=== PATIENT | female | born 1985 | race Caucasian/White ===

== ENCOUNTER 2018-05-22 18:26 | Emergency (ER) | payer OTHER ==
[~2018-05-22] VITALS: Ht 167.6 cm; Wt 90.7 kg
[2018-05-22 18:26] VITALS: BP 153/89
== END 2018-05-22 19:01 | disposition home or self-care (01) ==
LOC: ER 18:32
DX: S40.012A Contusion of left shoulder, initial encounter (principal); S90.31XA Contusion of right foot, initial encounter; S19.89XA Other specified injuries of other specified part of neck, initial encounter; Z90.89 Acquired absence of other organs; V49.49XA Driver injured in collision with other motor vehicles in traffic accident, initial encounter; Y93.89 Activity, other specified; Y92.413 State road as the place of occurrence of the external cause; Y99.8 Other external cause status
CPT/HCPCS: A4606